=== PATIENT | male | born 1975 | race African-American/Black ===

== ENCOUNTER 2021-04-13 10:52 | Emergency (ER) | payer OTHER, SELFPAY ==
--- NOTE | ~2021-04-13 | XR_ITS ---
EXAMINATION: XR CHEST CLINICAL INFORMATION: Chest pain COMPARISON: None TECHNIQUE: 2 views of the chest were obtained. FINDINGS: No significant abnormality is noted involving the heart, lungs, mediastinum, bony thorax or soft tissues. XR/XR chest 2V IMPRESSION: Unremarkable chest examination.
[2021-04-13 11:00] VITALS: BP 113/76; PULSE 74; RESP 16; TEMP 37.1; O2SAT 94
[2021-04-13 11:02] VITALS: BP 139/90; PULSE 76; O2SAT 94; BMI 39.5
--- NOTE | 2021-04-13 11:15 | ECG_ITS ---
Test Reason : CHEST PAIN Blood Pressure : / mmHG Vent. Rate : 075 BPM Atrial Rate : 075 BPM P-R Int : 158 ms QRS Dur : 088 ms QT Int : 374 ms P-R-T Axes : 050 005 031 degrees QTc Int : 417 ms Normal sinus rhythm Nonspecific T wave abnormality Abnormal ECG No previous ECGs available Referred By: Kanwal Hanson Electronically Signed By:MARIA C PAGE MD
--- NOTE | 2021-04-13 11:17 | ED_ITS ---
HPI - Chest Pain General Chief Complaint: Chest Pain Stated Complaint: chest pain Time Seen by Provider: 04/13/21 11:05 Source: patient and EMS Mode of arrival: EMS Limitations: no limitations History of Present Illness HPI narrative: 46 yo male coming from [facility] with complaints of CP since 11am. Patient has a past medical history of alcohol abuse, hepatitis-C, liver disease, bipolar, anxiety and depression. Patient was at and care for detox and admitted to [facility] 04/11 for generalized weakness and deconditioning for short-term rehab. Patient tells me he was lying in his bed at 11:00 when he developed central ch est pain. He denies any associated nausea, vomiting, diarrhea, diaphoresis, shortness of breath or dizziness. He received 325 mg of aspirin prior to arrival. He tells me now his pain is a 6/10 and he is feeling some improvement in his symptoms. Of note the patient is taking lactulose daily however for the last 2 days he has refused it. He tells me it makes him feel nauseous and that is why he does not like it. Alert and oriented Related Data Allergies Allergy/AdvReac Type Severity Reaction Status Date / Time No Known Allergies Allergy Verified 04/13/21 11:07 Review of Systems Review of Systems: Yes all other systems are reviewed and are negative Constitutional: Constitutional: Reports no additional constitutional complaints, Denies body ache(s), Denies chills, Denies fever(s), Denies headac he(s) and Denies weakness Eyes: Eyes: Reports no additional eye complaints and Denies change in vision ENT: Reports system reviewed and no additional complaints, except as documented, Denies dizziness, Denies headache(s), Denies nasal congestion, Denies nasal discharge and Denies neck pain Cardiovascular: Cardiovascular: Reports no additional cardiovascular co mplaints, Reports chest pain, Denies leg edema and Denies dyspnea Respiratory: Respiratory: Reports no additional respiratory complaints, Denies cough and Denies dyspnea Gastrointestinal: Gastrointestinal: Reports no additional gastrointestinal complaints, Denies abdominal pain, Denies diarrhea, Denies nausea and Denies vomiting Genitourinary: Genitourinary: Denies urinary incontinence Musculoskeletal: Musculoskeletal: Reports no additional musculoskeletal complaints, Denies back pain, Denies arthralgias, Denies joint swelling, Denies neck pain, Denies numbness and Denies tingling Integumentary/Breasts: Skin/Breast: Reports system reviewed and no additional complaints, except as docu and Denies rash Neurologic: Reports system reviewed and no additional complaints, except as documented, Denies Abnormal speech present, Denies dizziness, Denies headache(s), Denies numbness, Denies tingling and Denies weakness PMFSH Past Medical History Attestation statement: The following information was validated with the patient. Source: old records reviewed and nursing notes reviewed Medical History Bipolar disorder Chronic viral hepatitis C Depression Legal blindness Obstructive sleep apnea Stress incontinence Social History Social History Advance Directives Date on File: 04/13/21 Physical Exam Vital Signs: Vital Signs: Last Vital Signs Temp 98.8 F 04/13/21 11:00 Pulse 74 04/13/21 14:26 Resp 16 04/13/21 14:26 BP 100/54 L 04/13/21 14:26 Pulse Ox 98 04/13/21 14:26 Body Mass Index 39.5 Const: General: cooperative, healthy appearing, comfortable and no acute distress Orientation/consciousness: patient oriented x3 Limitations: no limitations HENMT: Head: Yes normal to inspection Ears: hearing grossly normal b ilaterally General nose exam: Normal external nose present Face and sinus: Yes normal facial exam Mouth: Normal oral and palatal mucosa present Throat: Yes posterior oropharynx normal Eyes: General: appearance normal, both eyes and all related structures Pupils: Equal, round and reactive pupils present Neck: Neck: Yes normal visual inspection Chest: Chest palpation & inspection: normal inspection of the chest Resp: Effort & Inspection: normal respiratory effort Auscultation: clear to auscultation bilaterally Cardio: Rate: regular rate Rhythm: regular rhythm Peripheral pulses: Peripheral pulses 2+ throughout GI: Inspection: Yes normal to inspection Palpation (GI): Soft to palpation and nontender Auscultation: normal bowel sounds Back/Spine/Pelvis: Thoracic/Lumbar Spine: thoracic and lumbar spine normal to inspection Skin: General skin exam: no rashes or lesions noted Neuro: General: patient oriented x3, no focal motor deficits and normal sensation to monofilament Cranial nerves: Yes Equal, round and reactive pupils present Cognition (Neuro): normal cognition Speech: No Abnormal speech present Gait exam (Neuro): Normal gait present Motor exam (neuro): 5/5 motor strength present throughout Extrem: General: Yes normal to inspection, Yes no pedal edema and Yes no calf tenderness Course Course Course Narrative: 46-year-old male coming from a short-term rehab with complaints of central chest pain since 11:00 which began at rest. No associated symptoms. Received aspirin prior to arrival. Will check labs, EKG, chest x-ray. Non compliant with lactulose last few days. Will check ammonia level. Patient is alert and oriented. 1205-Ammonia today 80. Last ammonia 63 05/11. A&OX4. Patient does not want to take lactulose d/t complaints of nausea. He is able to make his own medical decision at this point. 1530-2nd troponin negative. Less likely ACS. All other labs including D-dimer are negative. Chest x-ray shows no acute finding. EKG shows no ischemia. Patient is feeling improved. Will discharge back to [facility]. MDM - Chest Pain MDM Narrative Medical decision making narrative: ACS, PE Medical Records Data Attestation: I reviewed the patient's medical records. Lab Data Attestation: I reviewed the patient's lab results. Result diagrams: 04/13/21 11:38 04/13/21 11:38 Labs: Lab Results 04/13/21 04/13/21 04/13/21 Range/Units 11:38 11:38 11:38 WBC 5.6 (4.8-10.8) X10*3/uL RBC 4.85 (4.60-5.80) X10*6/uL Hgb 14.7 (14.0-18.0) g/dl Hct 41.8 L (42-52) % MCV 86.2 (80-98) fL MCH 30.3 (27.0-33.0) pg MCHC 35.2 (31.0-36.0) g/dl RDW 13.2 (11.0-16.0) % Plt Count 213 (160-400) X10*3/uL MPV 11.0 (9.4-12.4) fL Immature Gran % (Auto) 0.4 (0.0-0.4) % Neut % (Auto) 48.9 (45-73) % Lymph % (Auto) 37.8 (20-40) % [place] % (Auto) 10.2 (2-11) % Eos % (Auto) 2.2 (0-4) % Baso % (Auto) 0.5 (0-2) % Lymph # (Auto) 2.1 (1.2-4.9) X10*3/uL [place] # (Auto) 0.6 (0.1-1.2) X10*3/uL Eos # (Auto) 0.1 (0.0-0.4) X10*3/uL Baso # (Auto) 0.0 (0.0-0.2) X10*3/uL Abs Immat Gran (auto) 0.02 (0.00-0.03) X10*3/uL Absolute Neuts (auto) 2.7 (2.0-8.3) X10*3/uL Absolute Nucleated RBC 0.000 (0.0-0.012) X10*3/uL Nucleated RBC % (auto) 0.0 (0.0-0.2) /100WBC PT (9.9-13.0) SEC INR (0.9-1.1) D-Dimer NG/ML Sodium 137 (135-145) mmol/L Potassium 4.3 (3.3-5.1) mmol/L Chloride 101 (96-108) mmol/L Carbon Dioxide 29 (22-29) mmol/L Anion Gap 11 L (12-20) BUN 13 (9-16) mg/dL Creatinine 0.84 (0.5-1.4) mg/dL Estim Creat Clear Calc 135.6 Estimated GFR > 60 Random Glucose 98 (60-115) mg/dL Calcium 9.4 (8.4-10.2) mg/dL Magnesium 1.9 (1.6-2.6) mg/dL Total Bilirubin 0.4 (0.0-1.0) mg/dL Direct Bilirubin 0.2 (0.0-0.5) mg/dL AST 26 (5-37) U/L ALT 31 (0-40) U/L Alkaline Phosphatase 109 (39-117) U/L Ammonia 80 H (13-55) umol/L Troponin I High Sens (<3.5-35.0) ng/L Total Protein 8.0 (6.5-8.0) g/dL Albumin 4.3 (3.5-5.0) g/dL Lipase 32 (8-78) U/L Ethyl Alcohol mg/dL Coronavirus (PCR) (Negative) Influenza Type A (PCR) (Negative) Influenza Type B (PCR) (Negative) RSV RNA Qual (PCR) (Negative) 04/13/21 04/13/21 04/13/21 Range/Units 11:38 11:39 11:39 WBC (4.8-10.8) X10*3/uL RBC (4.60-5.80) X10*6/uL Hgb (14.0-18.0) g/dl Hct (42-52) % MCV (80-98) fL MCH (27.0-33.0) pg MCHC (31.0-36.0) g/dl RDW (11.0-16.0) % Plt Count (160-400) X10*3/uL MPV (9.4-12.4) fL Immature Gran % (Auto) (0.0-0.4) % Neut % (Auto) (45-73) % Lymph % (Auto) (20-40) % [place] % (Auto) (2-11) % Eos % (Auto) (0-4) % Baso % (Auto) (0-2) % Lymph # (Auto) (1.2-4.9) X10*3/uL [place] # (Auto) (0.1-1.2) X10*3/uL Eos # (Auto) (0.0-0.4) X10*3/uL Baso # (Auto) (0.0-0.2) X10*3/uL Abs Immat Gran (auto) (0.00-0.03) X10*3/uL Absolute Neuts (auto) (2.0-8.3) X10*3/uL Absolute Nucleated RBC (0.0-0.012) X10*3/uL Nucleated RBC % (auto) (0.0-0.2) /100WBC PT 11.6 (9.9-13.0) SEC INR 1.0 (0.9-1.1) D-Dimer 227 NG/ML Sodium (135-145) mmol/L Potassium (3.3-5.1) mmol/L Chloride (96-108) mmol/L Carbon Dioxide (22-29) mmol/L Anion Gap (12-20) BUN (9-16) mg/dL Creatinine (0.5-1.4) mg/dL Estim Creat Clear Calc Estimated GFR Random Glucose (60-115) mg/dL Calcium (8.4-10.2) mg/dL Magnesium (1.6-2.6) mg/dL Total Bilirubin (0.0-1.0) mg/dL Direct Bilirubin (0.0-0.5) mg/dL AST (5-37) U/L ALT (0-40) U/L Alkaline Phosphatase (39-117) U/L Ammonia (13-55) umol/L Troponin I High Sens < 3.5 (<3.5-35.0) ng/L Total Protein (6.5-8.0) g/dL Albumin (3.5-5.0) g/dL Lipase (8-78) U/L Ethyl Alcohol < 10 mg/dL Coronavirus (PCR) (Negative) Influenza Type A (PCR) (Negative) Influenza Type B (PCR) (Negative) RSV RNA Qual (PCR) (Negative) 04/13/21 04/13/21 Range/Units 11:39 14:25 WBC (4.8-10.8) X10*3/uL RBC (4.60-5.80) X10*6/uL Hgb (14.0-18.0) g/dl Hct (42-52) % MCV (80-98) fL MCH (27.0-33.0) pg MCHC (31.0-36.0) g/dl RDW (11.0-16.0) % Plt Count (160-400) X10*3/uL MPV (9.4-12.4) fL Immature Gran % (Auto) (0.0-0.4) % Neut % (Auto) (45-73) % Lymph % (Auto) (20-40) % [place] % (Auto) (2-11) % Eos % (Auto) (0-4) % Baso % (Auto) (0-2) % Lymph # (Auto) (1.2-4.9) X10*3/uL [place] # (Auto) (0.1-1.2) X10*3/uL Eos # (Auto) (0.0-0.4) X10*3/uL Baso # (Auto) (0.0-0.2) X10*3/uL Abs Immat Gran (auto) (0.00-0.03) X10*3/uL Absolute Neuts (auto) (2.0-8.3) X10*3/uL Absolute Nucleated RBC (0.0-0.012) X10*3/uL Nucleated RBC % (auto) (0.0-0.2) /100WBC PT (9.9-13.0) SEC INR (0.9-1.1) D-Dimer NG/ML Sodium (135-145) mmol/L Potassium (3.3-5.1) mmol/L Chloride (96-108) mmol/L Carbon Dioxide (22-29) mmol/L Anion Gap (12-20) BUN (9-16) mg/dL Creatinine (0.5-1.4) mg/dL Estim Creat Clear Calc Estimated GFR Random Glucose (60-115) mg/dL Calcium (8.4-10.2) mg/dL Magnesium (1.6-2.6) mg/dL Total Bilirubin (0.0-1.0) mg/dL Direct Bilirubin (0.0-0.5) mg/dL AST (5-37) U/L ALT (0-40) U/L Alkaline Phosphatase (39-117) U/L Ammonia (13-55) umol/L Troponin I High Sens < 3.5 (<3.5-35.0) ng/L Total Protein (6.5-8.0) g/dL Albumin (3.5-5.0) g/dL Lipase (8-78) U/L Ethyl Alcohol mg/dL Coronavirus (PCR) NEGATIVE (Negative) Influenza Type A (PCR) NEGATIVE (Negative) Influenza Type B (PCR) NEGATIVE (Negative) RSV RNA Qual (PCR) NEGATIVE (Negative) Imaging Data Chest x-ray: Attestation: I personally reviewed and interpreted this imaging study as follows: Radiologist's impression: EXAMINATION: XR CHEST CLINICAL INFORMATION: Chest pain COMPARISON: None TECHNIQUE: 2 views of the chest were obtained. FINDINGS: No significant abnormality is noted involving the heart, lungs, mediastinum, bony thorax or soft tissues. XR/XR chest 2V IMPRESSION: Unremarkable chest examination. ECG Data ECG #1: Attestation: I personally reviewed and interpreted this ECG as follows: ECG interpretation date: 04/13/21 ECG interpretation time: 11:06 Interpretation: Normal sinus rhythm with a rate of 75, normal AK, normal QRS, or QT Discharge Plan Discharge Clinical Impression: Atypical chest pain Patient Disposition: er SNF Instructions: Chest Wall Pain (ED) Additional Instructions: EKG normal Chest x-ray normal Labs all unremarkable Ammonia level 80. Patient refused lactulose Referrals: Physician,Unknown [Primary Care Provider] - 2 days Interventions: ED Discharge Assessment Last Done: 04/13/21 17:29 Discharge Date/Time: 04/13/21 17:30
[2021-04-13] MEDS: Nitroglycerin 0.4 MG TAB.SUBL SUBLINGUAL (11:39)
[2021-04-13 11:44] VITALS: BP 111/67; PULSE 83; RESP 16; O2SAT 98
[2021-04-13 11:50] LABS: MANUAL DIFF FLAG NO
[2021-04-13 11:52] LABS: Basophils Percent Auto 0.5 % (0-2); Eosinophils Absolute Auto 0.1 X10*3/uL (0.0-0.4); Eosinophils Percent Auto 2.2 % (0-4); Hematocrit 41.8 % (42-52); Hemoglobin 14.7 g/dl (14.0-18.0); Imm Gran Abs Auto 0.02 X10*3/uL (0.00-0.03); Imm Gran Pct Auto 0.4 % (0.0-0.4); Lymphocytes Absolute Auto 2.1 X10*3/uL (1.2-4.9); Lymphocytes Percent Auto 37.8 % (20-40); Mean Corpuscular HGB Conc 35.2 g/dl (31.0-36.0); Mean Corpuscular Hemoglobin 30.3 pg (27.0-33.0); Mean Corpuscular Volume 86.2 fL (80-98); Monocytes Absolute Auto 0.6 X10*3/uL (0.1-1.2); Monocytes Percent Auto 10.2 % (2-11); Neutrophils Absolute Auto 2.7 X10*3/uL (2.0-8.3); Neutrophils Percent Auto 48.9 % (45-73); Platelet Count 213 X10*3/uL (160-400); Red Blood Count 4.85 X10*6/uL (4.60-5.80); Red Cell Distribution Width 13.2 % (11.0-16.0); White Blood Count 5.6 X10*3/uL (4.8-10.8)
[2021-04-13 11:58] LABS: Prothrombin Time 11.6 SEC (9.9-13.0)
[2021-04-13 12:03] LABS: Ammonia 80 umol/L (13-55)
[2021-04-13 12:08] LABS: Ethanol < 10 mg/dL
[2021-04-13 12:13] LABS: Alanine Aminotransferase 31 U/L (0-40); Albumin Level 4.3 g/dL (3.5-5.0); Alkaline Phosphatase 109 U/L (39-117); Anion Gap 11 (12-20); Aspartate Amino Transferase 26 U/L (5-37); Bilirubin Direct 0.2 mg/dL (0.0-0.5); Bilirubin Total 0.4 mg/dL (0.0-1.0); Blood Urea Nitrogen 13 mg/dL (9-16); Calcium 9.4 mg/dL (8.4-10.2); Carbon Dioxide 29 mmol/L (22-29); Chloride 101 mmol/L (96-108); Creatinine Clr Calc Pharmacy 135.6; Estimated Glomerular Filt Rate > 60; Glucose Random 98 mg/dL (60-115); Lipase 32 U/L (8-78); Magnesium 1.9 mg/dL (1.6-2.6); Potassium 4.3 mmol/L (3.3-5.1); Sodium 137 mmol/L (135-145)
[2021-04-13 12:15] LABS: Troponin-I High Sensitivity < 3.5 ng/L (<3.5-35.0)
[2021-04-13 12:18] LABS: D Dimer 227 NG/ML
[2021-04-13 12:51] LABS: Influenza A PCR NEGATIVE (Negative); Influenza B PCR NEGATIVE (Negative); Resp Syncy Virus RNA Qual PCR NEGATIVE (Negative); SARS COV2 PCR INHOUSE NEGATIVE (Negative)
[2021-04-13 12:59] VITALS: BP 109/70; PULSE 74; RESP 16; O2SAT 95
[2021-04-13 14:26] VITALS: BP 100/54; PULSE 74; RESP 16; O2SAT 98
[2021-04-13 15:04] LABS: Troponin-I High Sensitivity < 3.5 ng/L (<3.5-35.0)
== END 2021-04-13 17:30 | disposition skilled nursing facility (03) ==
PROVIDERS: Nurse Practitioner Family; Emergency Provider Emergency Medicine
DX: R07.89 Other chest pain (principal); Z20.822 Contact with and (suspected) exposure to COVID-19; F10.10 Alcohol abuse, uncomplicated; Y90.0 Blood alcohol level of less than 20 mg/100 ml; B18.2 Chronic viral hepatitis C
CPT/HCPCS: 0241U; 36415; 71046; 80048; 80076; 82077; 82140; 83690; 83735; 84484; 85025; 85379; 85610; 93005; 99284; 99285